=== PATIENT | female | born 2000 | race American Indian/Alaskan Native ===

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

== ENCOUNTER 2020-04-25 11:38 | Outpatient (CLI) | payer OTHER ==
[2020-04-25 11:54] VITALS: BP 98/53
== END 2020-04-25 12:41 | disposition home or self-care (01) ==
LOC: APU 11:38 → TRG 11:38
PROVIDERS: ATTEND Obstetrics & Gynecology
DX: O47.03 False labor before 37 completed weeks of gestation, third trimester (principal); Z3A.32 32 weeks gestation of pregnancy
CPT/HCPCS: 59025

== ENCOUNTER 2022-04-18 10:15 | Outpatient (CLI) | payer OTHER ==
[2022-04-18 11:46] VITALS: BP 88/51
[2022-04-18] MEDS ORDERED: LACTATED RINGERS 500 ML IV ONE (12:00)
[2022-04-18 12:27] LABS: Bacteria,Urine 1+ /HPF (Negative); Bilirubin,Urine NEG (Negative); Blood,Urine NEG (Negative); Color,Urine Yellow (Yellow); Protein,Urine <15 mg/dL mg/dL (Negative); Urobilinogen,Urine < 2.0 mg/dL (<2.0)
== END 2022-04-18 13:58 | disposition home or self-care (01) ==
LOC: NM 10:15 → APU 10:18 → NM 13:58
PROVIDERS: ATTEND Obstetrics & Gynecology
DX: Z34.92 Encounter for supervision of normal pregnancy, unspecified, second trimester (principal); Z3A.23 23 weeks gestation of pregnancy
CPT/HCPCS: 59025; 81001

== ENCOUNTER 2022-07-01 20:41 | Inpatient (IN) | payer OTHER ==
[2022-07-01] MEDS ORDERED: LACTATED RINGERS 500 ML IV ONE (21:25)
[2022-07-01 22:12] LABS: Color,Urine Yellow (Yellow)
[2022-07-01 22:13] LABS: Bilirubin,Urine Negative (Negative); Blood,Urine Negative (Negative); Protein,Urine <15 mg/dL mg/dL (Negative); Urobilinogen,Urine < 2.0 mg/dL (<2.0)
[2022-07-01] MEDS ORDERED: TERBUTALINE 1 MG/1 ML INJ SUB-Q ONE (23:03)
[2022-07-02] MEDS ORDERED: ACETAMINOPHEN 325 MG TAB PO PRN (00:28)
[2022-07-02] MEDS ORDERED: DOCUSATE SODIUM 100 MG CAP PO PRN (00:28)
[2022-07-02] MEDS ORDERED: MAGNESIUM SULFATE 4 GM/100 ML BAG IV ONE (00:30)
[2022-07-02] MEDS: BETAMET ACET/BETAMET NA PH 6 MG/ML INJ 5 ML MDV IM SCH (00:45)
[2022-07-02 00:47] LABS: Basophils % (Auto) 0.6 % (0.0-1.8); Eosinophils # (Auto) 0.3 K/mm3 (0.0-0.4); Eosinophils % (Auto) 3.8 % (0.0-4.3); Hematocrit 34.3 % (30.3-42.9); Hemoglobin 11.5 gm/dl (10.1-14.3); Lymphocytes # (Auto) 2.1 K/mm3 (1.2-5.4); Lymphocytes % (Auto) 26.7 % (13.4-35.0); Mean Corpuscular HGB Conc 34 % (30-34); Mean Corpuscular Volume 81 fl (79-97); Monocytes # (Auto) 0.5 K/mm3 (0.0-0.8); Monocytes % (Auto) 6.3 % (0.0-7.3); Platelet Count 213 K/mm3 (140-440); Red Blood Count 4.21 M/mm3 (3.65-5.03); Red Cell Distribution Width 13.6 % (13.2-15.2)
[2022-07-02] MEDS ORDERED: LACTATED RINGERS 1,000 ML ONE ×2 (01:13→13:49)
[2022-07-02] MEDS: MAGNESIUM SULFATE 40GM/1000ML 40 GM/1,000 ML BAG IV SCH (03:04)
--- NOTE | 2022-07-02 08:51 | History and Physical Report ---
History of Present Illness Date of examination: 07/02/22 Date of admission: 07/02/22 00:28 Chief complaint: ctxs History of present illness: 21 yo, @ 34wks, initiated care with [facility] at 10wks. has been complicated by sickle cell trait and HSV2. She presents to [facility] yesterday with reports of frequent painful ctxs. Reports positive FM, denies any VB. Cervix was found to be 2 cms dilated. Labs: B+, antibody negative; rubella immune; VDRL negative; urine culture negative; HBsAg negative; HIV negative; Hep C negative; GC/Chlamydia/Trichomonas negative; 1 hr gtt 64; GBS not yet collected. 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 denies: smoking, alcohol abuse, prescription drug abuse, IV drug use - Obstetrical History Expected Date of Delivery: 08/13/22 Actual Gestation: 34 Week(s) 0 Day(s) : 4 Para: 2 Hx # Term Pregnancies: 2 Number of Pregnancies: 0 Spontaneous Abortions: 0 Induced : 1 Number of Living Children: 2 #1 Gender: Male year: 2[birth year] Birthweight: 2.608 kg Method of Delivery: Vaginal Gestational age at delivery: 38 Complications: none #2 Gender: Male year: 2,020 Birthweight: 2.892 kg Method of Delivery: Vaginal Gestational age at delivery: 37 Complications: none Medications and Allergies Allergies Allergy/AdvReac Type Severity Reaction Status Date / Time No Known Allergies Allergy Verified 11/14/15 08:08 Home Medications Medication Instructions Recorded Confirmed Last Taken Type Pnv,Calcium 72/Iron/Folic Acid 1 each PO DAILY 08/10/16 05/30/20 Unknown History [Pnv Plus Multivit Tab] HYDROcodone/APAP 5-325 [[place] 2 each PO Q6H PRN #30 tablet 08/11/16 05/30/20 Unknown Rx 5-325 mg TAB] Ibuprofen [Motrin 600 MG tab] 600 mg PO Q6HR PRN #30 tablet 09/19/16 07/08/20 Unknown Rx Vit-Fe Fumar-FA [ 1 each PO QDAY #30 tablet 08/11/16 05/30/20 Unknown Rx Vitamin] Ibuprofen [Motrin 600 MG tab] 600 mg PO Q6H tablet 05/31/20 Unknown Rx Ibuprofen [Motrin] 600 mg PO Q6H PRN #60 tablet 05/31/20 Unknown Rx Active Meds: Active Medications Acetaminophen (Acetaminophen 325 Mg Tab) 650 mg PO Q4H PRN PRN Reason: Pain MILD(1-3)/Fever >100.5/FISHER Betamethasone Acet/Betameth SodPhos (Betamet Acet/Betamet Na Ph 6 Mg/Ml Inj 5 Ml Mdv) 12 mg IM Q24H ADALID Stop: 07/03/22 01:01 Last Admin: 07/02/22 00:45 Dose: 12 mg Docusate Sodium (Docusate Sodium 100 Mg Cap) 100 mg PO Q12H PRN PRN Reason: Constipation Magnesium Sulfate (Magnesium Sulfate 40gm/1000ml) 40 gm in 1,000 mls @ 50 mls/hr IV DIRECT ADALID Last Admin: 07/02/22 03:04 Dose: 2 gm/hr, 50 mls/hr Multivitamins/Iron/Calcium ( [id number]-Ru Fumarate-Folic Acid Vit Tab) 1 each PO QDAY ADALID Review of Systems All systems: negative Genitourinary: contractions - Vital Signs Vital signs: Vital Signs Pulse Pulse Ox 93 H 97 07/01/22 21:21 07/01/22 21:21 Temp Pulse Resp BP Pulse Ox 98.1 F 95 H 14 103/65 99 07/01/22 21:24 07/02/22 08:48 07/01/22 21:24 07/02/22 08:44 07/02/22 08:48 - Physical Exam Breasts: Positive: deferred Cardiovascular: Regular rate Lungs: Positive: Normal air movement Abdomen: Positive: other (gravid) Uterus: Positive: enlarged (S=D) Deep Tendon Reflex Grade: Normal +2 - Obstetrical FHR: category 1 Uterine Contraction Monitor Mode: External Cervical Dilatation: 4 (per RN) Cervical Effacement Percentage: 50 station: -2 Uterine Contraction Frequency (min): 4-5 Uterine Contraction Pattern: Irregular Uterine Tone Measurement Phase: Resting Uterine Contraction Intensity: Mild Results Result Diagrams: 07/02/22 00:38 Abnormal lab results 07/02/22 07/02/22 Range/Units 00:38 07:39 MCH 27 L (28-32) pg Magnesium 4.80 H (1.7-2.3) mg/dL All other labs normal. Assessment and Plan - Patient Problems (1) contractions Current Visit: Yes Status: Acute Plan to address problem: Continue Magnesium Betamethosone as ordered Continue to closely monitor /maternal wellbeing Expectant management (2) GBS screening not performed Current Visit: Yes Status: Acute (3) Sickle cell trait Current Visit: Yes Status: Acute (4) HSV-2 seropositive Current Visit: Yes Status: Acute Plan to address problem: No lesions noted
[2022-07-02] MEDS: PRENATAL VIT27-FE FUMARATE-FOLIC ACID VIT TAB PO SCH (10:14)
[2022-07-03] MEDS: MAGNESIUM SULFATE 40GM/1000ML 40 GM/1,000 ML BAG IV SCH (00:25)
[2022-07-03] MEDS ORDERED: LACTATED RINGERS 1,000 ML ONE ×2 (03:17→15:58)
[2022-07-03] MEDS: BETAMET ACET/BETAMET NA PH 6 MG/ML INJ 5 ML MDV IM SCH (07:00)
[2022-07-03 07:49] LABS: Amphetamine Screen,Urine Negative; Benzodiazepines Screen,Urine Negative; Cannabinoid Screen,Urine Negative; Cocaine Screen,Urine Negative; Methadone Screen,Urine Negative; Opiate Screen,Urine Negative
[2022-07-03] MEDS: PRENATAL VIT27-FE FUMARATE-FOLIC ACID VIT TAB PO SCH (09:53)
--- NOTE | 2022-07-03 21:52 | Progress Note ---
Assessment and Plan - Patient Problems (1) contractions Current Visit: Yes Status: Acute Plan to address problem: discontinue magnesium observe overnight and consider discharge home tomorrow if remains stable Subjective - Subjective Date of service: 07/03/22 Interval history: 21y/o @ 34+1 weeks with labor. The patient is currently without complaints. She is completing magnesium tocolysis today and betamethasone treatment. Denies leakage of fluid or vaginal bleeding. Objective - Vital Signs Vital Signs: Vital Signs - 12hr 07/03/22 07/03/22 07/03/22 09:50 09:55 09:57 Temperature Pulse Rate 99 H 91 H 91 H Respiratory Rate Blood Pressure O2 Sat by Pulse 96 98 88 Oximetry 07/03/22 07/03/22 07/03/22 10:00 10:05 10:10 Temperature Pulse Rate 91 H 84 89 Respiratory Rate Blood Pressure O2 Sat by Pulse 99 100 99 Oximetry 07/03/22 07/03/22 07/03/22 10:14 10:15 10:20 Temperature Pulse Rate 88 79 87 Respiratory Rate Blood Pressure 100/61 O2 Sat by Pulse 97 95 Oximetry 07/03/22 07/03/22 07/03/22 10:25 10:30 10:35 Temperature Pulse Rate 92 H 97 H 90 Respiratory Rate Blood Pressure O2 Sat by Pulse 96 94 95 Oximetry 07/03/22 07/03/22 07/03/22 10:40 10:45 10:50 Temperature Pulse Rate 83 82 87 Respiratory Rate Blood Pressure 98/58 O2 Sat by Pulse 97 92 95 Oximetry 07/03/22 07/03/22 07/03/22 10:55 11:00 11:05 Temperature Pulse Rate 85 84 97 H Respiratory Rate Blood Pressure O2 Sat by Pulse 97 97 95 Oximetry 07/03/22 07/03/22 07/03/22 11:10 11:15 11:20 Temperature Pulse Rate 82 95 H 85 Respiratory Rate Blood Pressure O2 Sat by Pulse 95 97 100 Oximetry 07/03/22 07/03/22 07/03/22 11:25 11:30 11:35 Temperature Pulse Rate 84 97 H 85 Respiratory Rate Blood Pressure O2 Sat by Pulse 98 96 96 Oximetry 07/03/22 07/03/22 07/03/22 11:36 11:40 11:45 Temperature Pulse Rate 50 L 87 89 Respiratory Rate Blood Pressure O2 Sat by Pulse 74 L 98 95 Oximetry 07/03/22 07/03/22 07/03/22 11:46 11:50 11:53 Temperature Pulse Rate 82 89 79 Respiratory Rate Blood Pressure 95/59 O2 Sat by Pulse 97 86 Oximetry 07/03/22 07/03/22 07/03/22 11:55 11:59 12:00 Temperature Pulse Rate 82 100 H 83 Respiratory Rate Blood Pressure O2 Sat by Pulse 100 86 94 Oximetry 07/03/22 07/03/22 07/03/22 12:05 12:10 12:15 Temperature Pulse Rate 117 H 93 H 87 Respiratory Rate Blood Pressure 99/65 O2 Sat by Pulse 90 96 100 Oximetry 07/03/22 07/03/22 07/03/22 12:20 12:23 12:25 Temperature Pulse Rate 95 H 90 87 Respiratory Rate Blood Pressure O2 Sat by Pulse 100 84 98 Oximetry 07/03/22 07/03/22 07/03/22 12:29 12:30 12:35 Temperature Pulse Rate 108 H 103 H 85 Respiratory Rate Blood Pressure O2 Sat by Pulse 79 L 84 100 Oximetry 07/03/22 07/03/22 07/03/22 12:40 12:44 12:45 Temperature Pulse Rate 94 H 85 87 Respiratory Rate Blood Pressure 101/63 O2 Sat by Pulse 100 97 Oximetry 07/03/22 07/03/22 07/03/22 12:48 12:50 12:55 Temperature Pulse Rate 62 86 91 H Respiratory Rate Blood Pressure O2 Sat by Pulse 89 100 97 Oximetry 07/03/22 07/03/22 07/03/22 13:00 13:05 13:10 Temperature Pulse Rate 90 86 89 Respiratory Rate Blood Pressure O2 Sat by Pulse 96 93 92 Oximetry 07/03/22 07/03/22 07/03/22 13:14 13:15 13:20 Temperature Pulse Rate 88 93 H 93 H Respiratory Rate Blood Pressure 87/50 O2 Sat by Pulse 93 94 Oximetry 07/03/22 07/03/22 07/03/22 13:25 13:30 13:35 Temperature Pulse Rate 90 91 H 94 H Respiratory Rate Blood Pressure O2 Sat by Pulse 94 93 94 Oximetry 07/03/22 07/03/22 07/03/22 13:40 13:44 13:45 Temperature Pulse Rate 92 H 91 H 93 H Respiratory Rate Blood Pressure 86/52 O2 Sat by Pulse 93 91 Oximetry 07/03/22 07/03/22 07/03/22 13:50 13:55 14:00 Temperature Pulse Rate 95 H 91 H 92 H Respiratory Rate Blood Pressure O2 Sat by Pulse 94 94 94 Oximetry 07/03/22 07/03/22 07/03/22 14:05 14:10 14:14 Temperature Pulse Rate 97 H 95 H 93 H Respiratory Rate Blood Pressure 84/53 O2 Sat by Pulse 93 93 88 Oximetry 07/03/22 07/03/22 07/03/22 14:15 14:20 14:23 Temperature Pulse Rate 93 H 96 H 95 H Respiratory Rate Blood Pressure O2 Sat by Pulse 93 93 88 Oximetry 07/03/22 07/03/22 07/03/22 14:25 14:30 14:35 Temperature Pulse Rate 94 H 94 H 99 H Respiratory Rate Blood Pressure O2 Sat by Pulse 93 93 93 Oximetry 07/03/22 07/03/22 07/03/22 14:40 14:45 14:50 Temperature Pulse Rate 97 H 87 89 Respiratory Rate Blood Pressure 101/59 O2 Sat by Pulse 94 95 96 Oximetry 07/03/22 07/03/22 07/03/22 14:52 14:55 15:00 Temperature Pulse Rate 59 L 90 97 H Respiratory Rate Blood Pressure O2 Sat by Pulse 88 96 97 Oximetry 07/03/22 07/03/22 07/03/22 15:05 15:10 15:15 Temperature Pulse Rate 86 92 H 90 Respiratory Rate Blood Pressure O2 Sat by Pulse 97 96 98 Oximetry 07/03/22 07/03/22 07/03/22 15:16 15:19 15:20 Temperature Pulse Rate 87 64 78 Respiratory Rate Blood Pressure 92/58 O2 Sat by Pulse 88 96 Oximetry 07/03/22 07/03/22 07/03/22 15:25 15:30 15:33 Temperature Pulse Rate 84 79 87 Respiratory Rate Blood Pressure O2 Sat by Pulse 100 99 89 Oximetry 07/03/22 07/03/22 07/03/22 15:35 15:40 15:45 Temperature Pulse Rate 88 85 96 H Respiratory Rate Blood Pressure 102/63 O2 Sat by Pulse 98 93 99 Oximetry 07/03/22 07/03/22 07/03/22 15:50 15:55 16:00 Temperature Pulse Rate 88 78 89 Respiratory Rate Blood Pressure O2 Sat by Pulse 98 98 97 Oximetry 07/03/22 07/03/22 07/03/22 16:03 16:05 16:10 Temperature Pulse Rate 86 89 84 Respiratory Rate Blood Pressure O2 Sat by Pulse 70 L 99 82 L Oximetry 07/03/22 07/03/22 07/03/22 16:15 16:20 16:25 Temperature Pulse Rate 82 87 84 Respiratory Rate Blood Pressure 109/63 O2 Sat by Pulse 100 100 100 Oximetry 07/03/22 07/03/22 07/03/22 16:30 16:35 16:40 Temperature Pulse Rate 81 80 100 H Respiratory Rate Blood Pressure O2 Sat by Pulse 100 100 98 Oximetry 07/03/22 07/03/22 07/03/22 16:45 16:50 16:55 Temperature Pulse Rate 92 H 91 H 89 Respiratory Rate Blood Pressure 101/66 O2 Sat by Pulse 93 94 95 Oximetry 07/03/22 07/03/22 07/03/22 17:00 17:05 17:10 Temperature Pulse Rate 98 H 85 93 H Respiratory Rate Blood Pressure O2 Sat by Pulse 96 99 97 Oximetry 07/03/22 07/03/22 07/03/22 17:14 17:15 17:20 Temperature Pulse Rate 81 92 H 93 H Respiratory Rate Blood Pressure 101/60 O2 Sat by Pulse 97 98 Oximetry 07/03/22 07/03/22 07/03/22 17:25 17:26 17:30 Temperature Pulse Rate 93 H 72 103 H Respiratory Rate Blood Pressure O2 Sat by Pulse 100 89 99 Oximetry 07/03/22 07/03/22 07/03/22 17:35 17:40 17:46 Temperature Pulse Rate 91 H 92 H 78 Respiratory Rate Blood Pressure O2 Sat by Pulse 98 100 80 L Oximetry 07/03/22 07/03/22 07/03/22 17:51 17:56 18:01 Temperature Pulse Rate 83 100 H 83 Respiratory Rate Blood Pressure O2 Sat by Pulse 92 96 95 Oximetry 07/03/22 07/03/22 07/03/22 18:06 18:11 18:16 Temperature Pulse Rate 83 96 H 88 Respiratory Rate Blood Pressure O2 Sat by Pulse 92 95 97 Oximetry 07/03/22 07/03/22 07/03/22 18:21 18:26 18:31 Temperature Pulse Rate 86 90 95 H Respiratory Rate Blood Pressure O2 Sat by Pulse 97 97 98 Oximetry 07/03/22 07/03/22 07/03/22 18:36 18:41 18:44 Temperature Pulse Rate 89 82 86 Respiratory Rate Blood Pressure 98/58 O2 Sat by Pulse 97 100 Oximetry 07/03/22 07/03/22 07/03/22 18:46 18:50 18:51 Temperature Pulse Rate 84 100 H 78 Respiratory Rate Blood Pressure O2 Sat by Pulse 97 84 97 Oximetry 07/03/22 07/03/22 07/03/22 18:56 19:01 19:06 Temperature Pulse Rate 83 78 80 Respiratory Rate Blood Pressure O2 Sat by Pulse 97 95 97 Oximetry 07/03/22 07/03/22 07/03/22 19:11 19:15 19:16 Temperature Pulse Rate 106 H 70 79 Respiratory Rate Blood Pressure 101/62 O2 Sat by Pulse 98 96 Oximetry 07/03/22 07/03/22 07/03/22 19:21 19:26 19:31 Temperature Pulse Rate 80 82 77 Respiratory Rate Blood Pressure O2 Sat by Pulse 96 95 95 Oximetry 07/03/22 07/03/22 07/03/22 19:33 19:36 19:41 Temperature 98.2 F Pulse Rate 86 83 79 Respiratory 17 Rate Blood Pressure O2 Sat by Pulse 94 95 Oximetry 07/03/22 07/03/22 07/03/22 19:45 19:46 19:51 Temperature Pulse Rate 84 80 77 Respiratory Rate Blood Pressure 101/66 O2 Sat by Pulse 95 96 Oximetry 07/03/22 07/03/22 07/03/22 19:56 20:01 20:06 Temperature Pulse Rate 81 90 82 Respiratory Rate Blood Pressure O2 Sat by Pulse 98 96 95 Oximetry 07/03/22 07/03/22 07/03/22 20:11 20:14 20:16 Temperature Pulse Rate 83 75 82 Respiratory Rate Blood Pressure 99/63 O2 Sat by Pulse 96 96 Oximetry 07/03/22 07/03/22 07/03/22 20:21 20:26 20:31 Temperature Pulse Rate 78 76 85 Respiratory Rate Blood Pressure O2 Sat by Pulse 97 97 94 Oximetry 07/03/22 07/03/22 07/03/22 20:36 20:41 20:46 Temperature Pulse Rate 81 81 76 Respiratory Rate Blood Pressure 105/63 O2 Sat by Pulse 98 98 92 Oximetry 07/03/22 07/03/22 07/03/22 20:51 20:56 21:01 Temperature Pulse Rate 81 80 81 Respiratory Rate Blood Pressure O2 Sat by Pulse 98 96 95 Oximetry 07/03/22 07/03/22 07/03/22 21:06 21:11 21:14 Temperature Pulse Rate 79 93 H 80 Respiratory Rate Blood Pressure 102/65 O2 Sat by Pulse 97 97 Oximetry 07/03/22 07/03/22 07/03/22 21:16 21:21 21:26 Temperature Pulse Rate 71 76 78 Respiratory Rate Blood Pressure O2 Sat by Pulse 98 97 99 Oximetry 07/03/22 07/03/22 07/03/22 21:31 21:33 21:36 Temperature Pulse Rate 77 86 84 Respiratory Rate Blood Pressure O2 Sat by Pulse 99 84 98 Oximetry 07/03/22 07/03/22 07/03/22 21:41 21:45 21:46 Temperature Pulse Rate 84 75 76 Respiratory Rate Blood Pressure 101/56 O2 Sat by Pulse 96 95 Oximetry - Labs Labs: Abnormal Labs 07/02/22 07/02/22 07/02/22 00:38 07:39 11:20 MCH 27 L Magnesium 4.80 H 5.40 H 07/02/22 07/03/22 07/03/22 16:27 00:58 07:00 MCH Magnesium 5.90 H 4.80 H 6.20 H 07/03/22 12:17 MCH Magnesium 5.90 H Laboratory Results - last 24 hr 07/03/22 07/03/22 07/03/22 00:58 07:00 12:17 Magnesium 4.80 H 6.20 H 5.90 H Urine Opiates Screen Urine Methadone Screen Ur Barbiturates Screen Ur Phencyclidine Scrn Ur Amphetamines Screen U Benzodiazepines Scrn Urine Cocaine Screen U Marijuana (THC) Screen Drugs of Abuse Note 07/03/22 Unknown Magnesium Urine Opiates Screen Negative Urine Methadone Screen Negative Ur Barbiturates Screen Negative Ur Phencyclidine Scrn Negative Ur Amphetamines Screen Negative U Benzodiazepines Scrn Negative Urine Cocaine Screen Negative U Marijuana (THC) Screen Negative Drugs of Abuse Note Disclamer
[2022-07-04] MEDS ORDERED: LACTATED RINGERS 1,000 ML ONE (04:44)
--- NOTE | 2022-07-04 06:31 | Progress Note ---
Assessment and Plan - Patient Problems (1) contractions Current Visit: Yes Status: Acute Plan to address problem: Patient is clinically stable Discharge home on modified bedrest Subjective - Subjective Date of service: 07/04/22 Interval history: 21y/o @ 34+2 weeks with labor. The patient is experiencing intermittent contractions. She denies any leakage of fluid. The patient has completed magnesium sulfate therapy and betamethasone. Patient reports: no new complaints Objective - Vital Signs Vital Signs: Vital Signs - 12hr 07/03/22 07/03/22 07/03/22 18:31 18:36 18:41 Temperature Pulse Rate 95 H 89 82 Respiratory Rate Blood Pressure O2 Sat by Pulse 98 97 100 Oximetry O2 Sat by Pulse Oximetry [ Throughout] 07/03/22 07/03/22 07/03/22 18:44 18:46 18:50 Temperature Pulse Rate 86 84 100 H Respiratory Rate Blood Pressure 98/58 O2 Sat by Pulse 97 84 Oximetry O2 Sat by Pulse Oximetry [ Throughout] 07/03/22 07/03/22 07/03/22 18:51 18:56 19:01 Temperature Pulse Rate 78 83 78 Respiratory Rate Blood Pressure O2 Sat by Pulse 97 97 95 Oximetry O2 Sat by Pulse Oximetry [ Throughout] 07/03/22 07/03/22 07/03/22 19:06 19:11 19:15 Temperature Pulse Rate 80 106 H 70 Respiratory Rate Blood Pressure 101/62 O2 Sat by Pulse 97 98 Oximetry O2 Sat by Pulse Oximetry [ Throughout] 07/03/22 07/03/22 07/03/22 19:16 19:21 19:26 Temperature Pulse Rate 79 80 82 Respiratory Rate Blood Pressure O2 Sat by Pulse 96 96 95 Oximetry O2 Sat by Pulse Oximetry [ Throughout] 07/03/22 07/03/22 07/03/22 19:31 19:33 19:36 Temperature 98.2 F Pulse Rate 77 86 83 Respiratory 17 Rate Blood Pressure O2 Sat by Pulse 95 94 Oximetry O2 Sat by Pulse Oximetry [ Throughout] 07/03/22 07/03/22 07/03/22 19:41 19:45 19:46 Temperature Pulse Rate 79 84 80 Respiratory Rate Blood Pressure 101/66 O2 Sat by Pulse 95 95 Oximetry O2 Sat by Pulse Oximetry [ Throughout] 07/03/22 07/03/22 07/03/22 19:51 19:56 20:00 Temperature 97.8 F Pulse Rate 77 81 Respiratory 16 Rate Blood Pressure O2 Sat by Pulse 96 98 98 Oximetry O2 Sat by Pulse 96 Oximetry [ Throughout] 07/03/22 07/03/22 07/03/22 20:01 20:06 20:11 Temperature Pulse Rate 90 82 83 Respiratory Rate Blood Pressure O2 Sat by Pulse 96 95 96 Oximetry O2 Sat by Pulse Oximetry [ Throughout] 07/03/22 07/03/22 07/03/22 20:14 20:16 20:21 Temperature Pulse Rate 75 82 78 Respiratory Rate Blood Pressure 99/63 O2 Sat by Pulse 96 97 Oximetry O2 Sat by Pulse Oximetry [ Throughout] 07/03/22 07/03/22 07/03/22 20:26 20:31 20:36 Temperature Pulse Rate 76 85 81 Respiratory Rate Blood Pressure O2 Sat by Pulse 97 94 98 Oximetry O2 Sat by Pulse Oximetry [ Throughout] 07/03/22 07/03/22 07/03/22 20:41 20:46 20:51 Temperature Pulse Rate 81 76 81 Respiratory Rate Blood Pressure 105/63 O2 Sat by Pulse 98 92 98 Oximetry O2 Sat by Pulse Oximetry [ Throughout] 07/03/22 07/03/22 07/03/22 20:56 21:01 21:06 Temperature Pulse Rate 80 81 79 Respiratory Rate Blood Pressure O2 Sat by Pulse 96 95 97 Oximetry O2 Sat by Pulse Oximetry [ Throughout] 07/03/22 07/03/22 07/03/22 21:11 21:14 21:16 Temperature Pulse Rate 93 H 80 71 Respiratory Rate Blood Pressure 102/65 O2 Sat by Pulse 97 98 Oximetry O2 Sat by Pulse Oximetry [ Throughout] 07/03/22 07/03/22 07/03/22 21:21 21:26 21:31 Temperature Pulse Rate 76 78 77 Respiratory Rate Blood Pressure O2 Sat by Pulse 97 99 99 Oximetry O2 Sat by Pulse Oximetry [ Throughout] 07/03/22 07/03/22 07/03/22 21:33 21:36 21:41 Temperature Pulse Rate 86 84 84 Respiratory Rate Blood Pressure O2 Sat by Pulse 84 98 96 Oximetry O2 Sat by Pulse Oximetry [ Throughout] 07/03/22 07/03/22 07/03/22 21:45 21:46 21:51 Temperature Pulse Rate 75 76 75 Respiratory Rate Blood Pressure 101/56 O2 Sat by Pulse 95 95 Oximetry O2 Sat by Pulse Oximetry [ Throughout] 07/03/22 07/03/22 07/03/22 21:56 22:01 22:06 Temperature Pulse Rate 84 84 81 Respiratory Rate Blood Pressure O2 Sat by Pulse 93 95 97 Oximetry O2 Sat by Pulse Oximetry [ Throughout] 07/03/22 07/03/22 07/03/22 22:11 22:14 22:16 Temperature Pulse Rate 82 73 92 H Respiratory Rate Blood Pressure 103/68 O2 Sat by Pulse 94 95 Oximetry O2 Sat by Pulse Oximetry [ Throughout] 07/03/22 07/03/22 07/03/22 22:21 22:26 22:31 Temperature Pulse Rate 83 78 81 Respiratory Rate Blood Pressure O2 Sat by Pulse 96 94 94 Oximetry O2 Sat by Pulse Oximetry [ Throughout] 07/03/22 07/03/22 07/03/22 22:36 22:41 22:45 Temperature Pulse Rate 84 80 73 Respiratory Rate Blood Pressure 95/64 O2 Sat by Pulse 95 94 Oximetry O2 Sat by Pulse Oximetry [ Throughout] 07/03/22 07/03/22 07/03/22 22:46 22:51 22:56 Temperature Pulse Rate 83 76 74 Respiratory Rate Blood Pressure O2 Sat by Pulse 93 95 96 Oximetry O2 Sat by Pulse Oximetry [ Throughout] 07/03/22 07/03/22 07/03/22 23:01 23:06 23:11 Temperature Pulse Rate 77 84 80 Respiratory Rate Blood Pressure O2 Sat by Pulse 95 96 95 Oximetry O2 Sat by Pulse Oximetry [ Throughout] 07/03/22 07/03/22 07/03/22 23:15 23:16 23:21 Temperature Pulse Rate 76 81 77 Respiratory Rate Blood Pressure 101/63 O2 Sat by Pulse 94 96 Oximetry O2 Sat by Pulse Oximetry [ Throughout] 07/03/22 07/03/22 07/03/22 23:26 23:31 23:35 Temperature Pulse Rate 79 100 H 82 Respiratory Rate Blood Pressure O2 Sat by Pulse 95 98 84 Oximetry O2 Sat by Pulse Oximetry [ Throughout] 07/03/22 07/03/22 07/03/22 23:36 23:41 23:44 Temperature Pulse Rate 86 85 78 Respiratory Rate Blood Pressure 90/57 O2 Sat by Pulse 98 97 Oximetry O2 Sat by Pulse Oximetry [ Throughout] 07/03/22 07/03/22 07/03/22 23:46 23:51 23:56 Temperature Pulse Rate 80 93 H 91 H Respiratory Rate Blood Pressure O2 Sat by Pulse 96 96 97 Oximetry O2 Sat by Pulse Oximetry [ Throughout] 07/04/22 07/04/22 07/04/22 00:01 00:06 00:11 Temperature Pulse Rate 85 80 76 Respiratory Rate Blood Pressure O2 Sat by Pulse 98 94 94 Oximetry O2 Sat by Pulse Oximetry [ Throughout] 07/04/22 07/04/22 07/04/22 00:15 00:16 00:21 Temperature Pulse Rate 84 81 78 Respiratory Rate Blood Pressure 94/66 O2 Sat by Pulse 94 96 Oximetry O2 Sat by Pulse Oximetry [ Throughout] 07/04/22 07/04/22 07/04/22 00:26 00:31 00:36 Temperature Pulse Rate 77 80 83 Respiratory Rate Blood Pressure O2 Sat by Pulse 96 93 95 Oximetry O2 Sat by Pulse Oximetry [ Throughout] 07/04/22 07/04/22 07/04/22 00:41 00:44 00:45 Temperature Pulse Rate 96 H 77 85 Respiratory Rate Blood Pressure 93/53 O2 Sat by Pulse 96 89 Oximetry O2 Sat by Pulse Oximetry [ Throughout] 07/04/22 07/04/22 07/04/22 00:46 00:51 00:56 Temperature Pulse Rate 76 80 80 Respiratory Rate Blood Pressure O2 Sat by Pulse 95 97 93 Oximetry O2 Sat by Pulse Oximetry [ Throughout] 07/04/22 07/04/22 07/04/22 01:01 01:06 01:11 Temperature Pulse Rate 78 82 84 Respiratory Rate Blood Pressure O2 Sat by Pulse 92 98 97 Oximetry O2 Sat by Pulse Oximetry [ Throughout] 07/04/22 07/04/22 07/04/22 01:14 01:16 01:21 Temperature Pulse Rate 89 82 74 Respiratory Rate Blood Pressure 113/71 O2 Sat by Pulse 85 98 98 Oximetry O2 Sat by Pulse Oximetry [ Throughout] 07/04/22 07/04/22 07/04/22 01:26 01:31 01:36 Temperature Pulse Rate 80 95 H 85 Respiratory Rate Blood Pressure O2 Sat by Pulse 96 96 96 Oximetry O2 Sat by Pulse Oximetry [ Throughout] 07/04/22 07/04/22 07/04/22 01:41 01:45 01:46 Temperature Pulse Rate 82 74 76 Respiratory Rate Blood Pressure 100/60 O2 Sat by Pulse 95 93 Oximetry O2 Sat by Pulse Oximetry [ Throughout] 07/04/22 07/04/22 07/04/22 01:48 01:51 01:56 Temperature Pulse Rate 88 68 78 Respiratory Rate Blood Pressure O2 Sat by Pulse 85 100 95 Oximetry O2 Sat by Pulse Oximetry [ Throughout] 07/04/22 07/04/22 07/04/22 02:01 02:06 02:11 Temperature Pulse Rate 81 75 81 Respiratory Rate Blood Pressure O2 Sat by Pulse 95 97 96 Oximetry O2 Sat by Pulse Oximetry [ Throughout] 07/04/22 07/04/22 07/04/22 02:15 02:16 02:21 Temperature Pulse Rate 69 74 78 Respiratory Rate Blood Pressure 96/59 O2 Sat by Pulse 95 95 Oximetry O2 Sat by Pulse Oximetry [ Throughout] 07/04/22 07/04/22 07/04/22 02:26 02:31 02:36 Temperature Pulse Rate 77 81 79 Respiratory Rate Blood Pressure O2 Sat by Pulse 95 95 95 Oximetry O2 Sat by Pulse Oximetry [ Throughout] 07/04/22 07/04/22 07/04/22 02:41 02:44 02:46 Temperature Pulse Rate 84 81 80 Respiratory Rate Blood Pressure 94/60 O2 Sat by Pulse 95 95 Oximetry O2 Sat by Pulse Oximetry [ Throughout] 07/04/22 07/04/22 07/04/22 02:51 02:56 03:01 Temperature Pulse Rate 81 83 88 Respiratory Rate Blood Pressure O2 Sat by Pulse 95 95 95 Oximetry O2 Sat by Pulse Oximetry [ Throughout] 07/04/22 07/04/22 07/04/22 03:06 03:11 03:15 Temperature Pulse Rate 87 88 82 Respiratory Rate Blood Pressure 98/59 O2 Sat by Pulse 94 93 Oximetry O2 Sat by Pulse Oximetry [ Throughout] 07/04/22 07/04/22 07/04/22 03:16 03:21 03:26 Temperature Pulse Rate 83 80 88 Respiratory Rate Blood Pressure O2 Sat by Pulse 95 95 95 Oximetry O2 Sat by Pulse Oximetry [ Throughout] 07/04/22 07/04/22 07/04/22 03:31 03:36 03:41 Temperature Pulse Rate 89 99 H 89 Respiratory Rate Blood Pressure O2 Sat by Pulse 95 95 94 Oximetry O2 Sat by Pulse Oximetry [ Throughout] 07/04/22 07/04/22 07/04/22 03:44 03:46 03:51 Temperature Pulse Rate 83 85 87 Respiratory Rate Blood Pressure 92/52 O2 Sat by Pulse 95 94 Oximetry O2 Sat by Pulse Oximetry [ Throughout] 07/04/22 07/04/22 07/04/22 03:56 04:01 04:06 Temperature Pulse Rate 86 85 89 Respiratory Rate Blood Pressure O2 Sat by Pulse 95 95 95 Oximetry O2 Sat by Pulse Oximetry [ Throughout] 07/04/22 07/04/22 07/04/22 04:11 04:14 04:16 Temperature Pulse Rate 77 88 75 Respiratory Rate Blood Pressure 99/57 O2 Sat by Pulse 96 94 Oximetry O2 Sat by Pulse Oximetry [ Throughout] 07/04/22 07/04/22 07/04/22 04:21 04:26 04:31 Temperature Pulse Rate 73 81 78 Respiratory Rate Blood Pressure O2 Sat by Pulse 94 95 95 Oximetry O2 Sat by Pulse Oximetry [ Throughout] 07/04/22 07/04/22 07/04/22 04:36 04:41 04:44 Temperature Pulse Rate 79 83 73 Respiratory Rate Blood Pressure 93/55 O2 Sat by Pulse 95 98 Oximetry O2 Sat by Pulse Oximetry [ Throughout] 07/04/22 07/04/22 07/04/22 04:46 04:51 04:56 Temperature Pulse Rate 73 75 72 Respiratory Rate Blood Pressure O2 Sat by Pulse 95 95 96 Oximetry O2 Sat by Pulse Oximetry [ Throughout] 07/04/22 07/04/22 07/04/22 05:01 05:12 05:16 Temperature Pulse Rate 74 62 75 Respiratory Rate Blood Pressure 108/59 O2 Sat by Pulse 96 88 Oximetry O2 Sat by Pulse Oximetry [ Throughout] 07/04/22 07/04/22 07/04/22 05:17 05:22 05:27 Temperature Pulse Rate 87 84 89 Respiratory Rate Blood Pressure O2 Sat by Pulse 99 95 94 Oximetry O2 Sat by Pulse Oximetry [ Throughout] 07/04/22 07/04/22 07/04/22 05:32 05:37 05:42 Temperature Pulse Rate 100 H 88 86 Respiratory Rate Blood Pressure O2 Sat by Pulse 95 96 98 Oximetry O2 Sat by Pulse Oximetry [ Throughout] 07/04/22 07/04/22 07/04/22 05:45 05:47 05:52 Temperature Pulse Rate 81 86 86 Respiratory Rate Blood Pressure 100/57 O2 Sat by Pulse 96 97 Oximetry O2 Sat by Pulse Oximetry [ Throughout] 07/04/22 07/04/22 07/04/22 05:57 06:02 06:07 Temperature Pulse Rate 86 84 86 Respiratory Rate Blood Pressure O2 Sat by Pulse 95 96 98 Oximetry O2 Sat by Pulse Oximetry [ Throughout] 07/04/22 07/04/22 07/04/22 06:12 06:14 06:17 Temperature Pulse Rate 85 81 90 Respiratory Rate Blood Pressure 82/51 O2 Sat by Pulse 99 99 Oximetry O2 Sat by Pulse Oximetry [ Throughout] 07/04/22 07/04/22 06:22 06:27 Temperature Pulse Rate 88 83 Respiratory Rate Blood Pressure O2 Sat by Pulse 97 97 Oximetry O2 Sat by Pulse Oximetry [ Throughout] - Labs Labs: Abnormal Labs 07/02/22 07/02/22 07/02/22 00:38 07:39 11:20 MCH 27 L Magnesium 4.80 H 5.40 H 07/02/22 07/03/22 07/03/22 16:27 00:58 07:00 MCH Magnesium 5.90 H 4.80 H 6.20 H 07/03/22 12:17 MCH Magnesium 5.90 H Laboratory Results - last 24 hr 07/03/22 07/03/22 07/03/22 07:00 12:17 Unknown Magnesium 6.20 H 5.90 H Urine Opiates Screen Negative Urine Methadone Screen Negative Ur Barbiturates Screen Negative Ur Phencyclidine Scrn Negative Ur Amphetamines Screen Negative U Benzodiazepines Scrn Negative Urine Cocaine Screen Negative U Marijuana (THC) Screen Negative Drugs of Abuse Note Disclamer
--- NOTE | 2022-07-04 06:33 | Discharge Summary ---
Providers - Providers Date of Admission: 07/02/22 00:28 Date of discharge: 07/04/22 Attending physician: DIEGO SHELDON Primary care physician: DIEGO SHELDON Hospitalization Reason for admission: labor Discharge diagnosis: other ( labor) Hospital course: The patient was admitted through triage with a complaint of regular uterine contractions. She was noted to have cervical change to 2 cm. She was admitted for magnesium sulfate therapy and betamethasone. The patient remained clinically stable. Condition at discharge: Good Disposition: 01 HOME / SELF CARE / HOMELESS - Discharge Diagnoses (1) contractions Status: Acute Plan - Provider Discharge Summary Activity: no sex for 6 weeks, no heavy lifting 4 weeks, no strenuous exercise Diet: routine Instructions: routine Additional instructions: [] Smoking cessation referral if applicable(refer to patient education folder for contact #) [] Refer to [facility] Booklet Call your doctor immediately for: * Fever > 100.5 * Heavy vaginal bleeding ( >1 pad per hour) * Severe persistent headache * Shortness of breath * Reddened, hot, painful area to leg or breast * Schedule follow-up in 1 week * labor precautions given - Follow up plan Forms: [facility] Discharge Summary
[2022-07-04 07:40] VITALS: BP 97/55
== END 2022-07-04 08:23 | disposition home or self-care (01) | DRG 781 ==
LOC: TRG 20:41 → APU 20:42 → LD 07-02 00:28 → OBSVTOIN 07-02 00:28 → TRG 07-02 00:28
PROVIDERS: ADMIT Obstetrics & Gynecology; ATTEND Obstetrics & Gynecology
DX: O99.013 Anemia complicating pregnancy, third trimester (principal); O60.03 Preterm labor without delivery, third trimester; D57.3 Sickle-cell trait; A60.09 Herpesviral infection of other urogenital tract; Z20.822 Contact with and (suspected) exposure to COVID-19; O98.313 Other infections with a predominantly sexual mode of transmission complicating pregnancy, third trimester; A60.00 Herpesviral infection of urogenital system, unspecified; Z3A.34 34 weeks gestation of pregnancy
CPT/HCPCS: 36415; 59025; 80307; 81001; 83735; 84112; 85025; 86850; 86900; 86901; 96360; 96372; G0378; J0702; J3105; J3475; J7120; U0003

== ENCOUNTER 2022-07-18 19:41 | Inpatient (IN) | payer OTHER ==
[2022-07-18] MEDS ORDERED: LACTATED RINGERS 1,000 ML IV ONE (20:24)
[2022-07-18 20:43] LABS: Bacteria,Urine 1+ /HPF (Negative); RBC,Urine < 1.0 /HPF (0.0-6.0)
[2022-07-18 20:54] LABS: Color,Urine Yellow (Yellow)
[2022-07-18] MEDS ORDERED: BUTORPHANOL 2 MG/1 ML INJ IV PRN ×2 (21:08)
[2022-07-18] MEDS ORDERED: OXYTOCIN 10 UNIT/1 ML INJ IM PRN (21:08)
[2022-07-18] MEDS ORDERED: CARBOPROST TROMETHAMINE 250 MCG/1 ML INJ IM PRN (21:08)
[2022-07-18] MEDS ORDERED: METHYLERGONOVINE MALEATE 0.2 MG/ML VIAL IM PRN (21:08)
[2022-07-18] MEDS ORDERED: LIDOCAINE (2%) 20 MG/1 ML VIAL 20 ML MDV INFILTRATI ONE (21:08)
[2022-07-18] MEDS ORDERED: ePHEDrine SULFATE 50 MG/1 ML INJ IV PRN (21:08)
[2022-07-18] MEDS ORDERED: MINERAL OIL 30 ML ORAL LIQD PO PRN (21:08)
[2022-07-18] MEDS ORDERED: TERBUTALINE 1 MG/1 ML INJ SUB-Q PRN (21:08)
[2022-07-18] MEDS ORDERED: miSOPROStol 200 MCG TAB PR PRN (21:08)
[2022-07-18] MEDS ORDERED: LOPERAMIDE 2 MG CAP PO PRN (21:08)
[2022-07-18] MEDS ORDERED: ACETAMINOPHEN 325 MG TAB PO PRN (21:08)
[2022-07-18] MEDS ORDERED: LACTATED RINGERS 1,000 ML IV SCH (21:15)
[2022-07-18] MEDS ORDERED: fentaNYL 100 MCG/2 ML INJ IV PRN (21:19)
[2022-07-18 21:49] LABS: Hematocrit 35.6 % (30.3-42.9); Hemoglobin 11.8 gm/dl (10.1-14.3); Mean Corpuscular HGB Conc 33 % (30-34); Mean Corpuscular Volume 80 fl (79-97); Platelet Count 226 K/mm3 (140-440); Red Blood Count 4.46 M/mm3 (3.65-5.03)
[2022-07-18] MEDS ORDERED: OXYTOCIN DRIP 30 UNITS/500 ML BAG IV SCH (22:00)
[2022-07-19] MEDS ORDERED: KETOROLAC 30 MG/1 ML INJ IV ONE (00:55)
--- NOTE | 2022-07-19 01:01 | History and Physical Report ---
History of Present Illness Date of examination: 07/19/22 Chief complaint: Contractions History of present illness: 21-year-old -0-1-2 at 36 and 3 weeks who presents with regular uterine co ntractions. Patient denies leakage of fluid. The patient initiated her care in the first trimester. Her course has been complicated by contractions and labor. She has a history of sickle cell trait. GBS is negative Past History Past Medical History: other (Sickle cell trait) Past Surgical History: no surgical history Social history: single - Obstetrical History Expected Date of Delivery: 08/13/22 Actual Gestation: 36 Week(s) 3 Day(s) : 4 Para: 2 Hx # Term Pregnancies: 2 Number of Pregnancies: 0 Spontaneous Abortions: 1 Induced : 0 Number of Living Children: 2 Medications and Allergies Allergies Allergy/AdvReac Type Severity Reaction Status Date / Time No Known Allergies Allergy Verified 11/14/15 08:08 Home Medications Medication Instructions Recorded Confirmed Last Taken Type Pnv,Calcium 72/Iron/Folic Acid 1 each PO DAILY 08/10/16 05/30/20 Unknown History [Pnv Plus Multivit Tab] HYDROcodone/APAP 5-325 [[place] 2 each PO Q6H PRN #30 tablet 08/11/16 05/30/20 Unknown Rx 5-325 mg TAB] Ibuprofen [Motrin 600 MG tab] 600 mg PO Q6HR PRN #30 tablet 08/11/16 05/30/20 Unknown Rx Vit-Fe Fumar-FA [ 1 each PO QDAY #30 tablet 08/11/16 05/30/20 Unknown Rx Vitamin] Ibuprofen [Motrin 600 MG tab] 600 mg PO Q6H tablet 05/31/20 Unknown Rx Ibuprofen [Motrin] 600 mg PO Q6H PRN #60 tablet 05/31/20 Unknown Rx Active Meds: Active Medications Acetaminophen (Acetaminophen 325 Mg Tab) 650 mg PO Q4H PRN PRN Reason: Pain, Mild (1-3) Butorphanol Tartrate (Butorphanol 2 Mg/1 Ml Inj) 1 mg IV Q2H PRN PRN Reason: Pain, Moderate(4-6) LABOR PAIN Butorphanol Tartrate (Butorphanol 2 Mg/1 Ml Inj) 2 mg IV Q2H PRN PRN Reason: Pain , Severe (7-10) Carboprost Tromethamine (Carboprost Tromethamine 250 Mcg/1 Ml Inj) 250 mcg IM ONCE PRN PRN Reason: Uterine Bleeding Ephedrine Sulfate (Ephedrine Sulfate 50 Mg/1 Ml Inj) 10 mg IV Q2M PRN PRN Reason: Hypotension Fentanyl (Fentanyl 100 Mcg/2 Ml Inj) 100 mcg IV Q2H PRN PRN Reason: Pain,Severe (7-10) LABOR PAIN Lactated Ringer's (Lactated Ringers) 1,000 mls @ 125 mls/hr IV DIRECT ADALID Oxytocin/Sodium Chloride (Pitocin/Ns 30 Unit/500ml) 30 units in 500 mls @ 40 mls/hr IV TITR ADALID; Protocol Ketorolac Tromethamine (Ketorolac 30 Mg/1 Ml Inj) 30 mg IV ONCE ONE Stop: 07/19/22 00:56 Loperamide HCl (Loperamide 2 Mg Cap) 2 mg PO ONCE PRN PRN Reason: give with Hemabate Methylergonovine Maleate (Methylergonovine Maleate 0.2 Mg/Ml Vial) 0.2 mg IM ONCE PRN PRN Reason: Uterine Bleeding Mineral Oil (Mineral Oil 30 Ml Oral Liqd) 30 ml PO QHS PRN PRN Reason: Constipation Misoprostol (Misoprostol 200 Mcg Tab) 800 mcg NM ONCE PRN PRN Reason: Uterine Bleeding Oxytocin (Oxytocin 10 Unit/1 Ml Inj) 10 unit IM ONCE PRN PRN Reason: Uterine Bleeding Terbutaline Sulfate (Terbutaline 1 Mg/1 Ml Inj) 0.25 mg SUB-Q ONCE PRN PRN Reason: Hyperstimulation/Hypertonicity Review of Systems All systems: negative - Vital Signs Vital signs: Vital Signs Pulse Ox 84 07/04/22 07:53 Temp Pulse Resp BP Pulse Ox 98.7 F 98 H 103/63 100 07/18/22 21:30 07/19/22 00:52 07/18/22 20:03 07/19/22 00:52 - Physical Exam Breasts: Positive: deferred Cardiovascular: Regular rate Lungs: Positive: Clear to auscultation Abdomen: Positive: normal appearance Results Result Diagrams: 07/18/22 21:24 Abnormal lab results 07/18/22 Range/Units 21:24 MCH 27 L (28-32) pg All other labs normal. Assessment and Plan - Patient Problems (1) labor Current Visit: Yes Status: Acute Plan to address problem: Admit to labor and delivery Expectant management
[2022-07-19] MEDS ORDERED: PROMETHAZINE 25 MG RECT SUPP PR PRN (01:02)
[2022-07-19] MEDS ORDERED: WITCH HAZEL/ GLYCERIN PAD TP PRN (01:02)
[2022-07-19] MEDS ORDERED: LANOLIN/ZINC/DIMETHICONE (LANSINOH) 7 GM TP PRN (01:02)
[2022-07-19] MEDS ORDERED: diphenhydrAMINE 25 MG CAP PO PRN (01:02)
[2022-07-19] MEDS ORDERED: PROMETHAZINE 25 MG TAB PO PRN (01:02)
[2022-07-19] MEDS ORDERED: MAGNESIUM HYDROXIDE (MOM) ORAL LIQD UDC PO PRN (01:02)
[2022-07-19] MEDS ORDERED: ONDANSETRON 4 MG/2 ML INJ IV PRN (01:02)
--- NOTE | 2022-07-19 01:02 | Procedure Note ---
OB Delivery Note - Delivery Date of Delivery: 07/19/22 Surgeon: DIEGO SHELDON Estimated blood loss: 100cc - Vaginal Delivery presentation: vertex Delivery position: OA Intrapartum events: labor-<37 weeks Delivery induction: AROM Delivery monitor: external FHT, external uterine Route of delivery: Delivery placenta: spontaneous Delivery cord: nuchal cord, 3 umbilical vessels Episiotomy: none Delivery laceration: none Anesthesia: none - Infant A at 1 minute: 8 at 5 minutes: 9 Gender: Male (7 pounds 1 ounce)
[2022-07-19] MEDS ORDERED: ACETAMINOPHEN 325 MG TAB PO PRN (01:03)
[2022-07-19] MEDS ORDERED: HYDROcodone/ACETAMINOPHEN 5-325 MG TAB PO PRN (01:03)
[2022-07-19] MEDS: IBUPROFEN 800 MG TAB PO SCH ×2 (07:52→22:30)
[2022-07-19 16:15] LABS: Hemoglobin 11.6 gm/dl (10.1-14.3)
[2022-07-20] MEDS: IBUPROFEN 800 MG TAB PO SCH (06:25)
--- NOTE | 2022-07-20 08:05 | Discharge Summary ---
Providers - Providers Date of Admission: 07/18/22 21:09 Date of discharge: 07/20/22 Attending physician: ASHLEY BUSH Primary care physician: ASHLEY BUSH Hospitalization Reason for admission: active labor Delivery: Discharge diagnosis: IUP at term delivered baby: male Hospital course: Patient admitted in labor. She had a successful vaginal delivery. course was uneventful. Condition at discharge: Good Disposition: 01 HOME / SELF CARE / HOMELESS - Discharge Diagnoses (1) labor Status: Acute Plan - Discharge Medications Prescriptions: Ibuprofen [Motrin] 800 mg PO Q8HR PRN #30 tablet PRN Reason: Pain , Severe (7-10) HYDROcodone/APAP 5-325 [[place] 5/325] 1 each PO Q6HR PRN #15 tablet PRN Reason: Pain - Provider Discharge Summary Activity: no sex for 6 weeks, no heavy lifting 4 weeks, no strenuous exercise Diet: routine Instructions: routine Additional instructions: [] Smoking cessation referral if applicable(refer to patient education folder for contact #) [] Refer to [facility] Booklet Call your doctor immediately for: * Fever > 100.5 * Heavy vaginal bleeding ( >1 pad per hour) * Severe persistent headache * Shortness of breath * Reddened, hot, painful area to leg or breast * Schedule visit in 4 weeks - Follow up plan
--- NOTE | 2022-07-20 08:05 | Progress Note ---
Assessment and Plan - Patient Problems (1) labor Current Visit: Yes Status: Acute Plan to address problem: Routine care Discharge home Subjective - Subjective Date of service: 07/20/22 Interval history: Patient is currently without complaints. She is only experiencing minor cramping. Her lochia is minimal. Patient reports: appetite normal, voiding normally, pain well controlled [place]: doing well Objective - Vital Signs Latest vital signs: Vital Signs Temp Pulse Resp BP Pulse Ox Pulse Ox 07/20/22 00:15 98.3 F 89 20 98/63 100 07/19/22 21:40 100 07/19/22 17:10 98.6 F 93 H 20 103/62 100 07/19/22 11:30 98.2 F 87 20 114/80 100 07/19/22 09:43 97.4 F L 80 20 102/59 99 07/19/22 08:30 99 Intake and Output 07/19/22 07/20/22 07/20/22 22:59 06:59 14:59 Intake Total 320 240 Output Total 1250 Balance -930 240 Intake: Oral 320 240 Output: Urine 1250 Void 1250 Other: Total, Intake Amount 320 240 Total, Output Amount 350 # Voids Void 1 1
[2022-07-20 17:38] VITALS: BP 101/67
== END 2022-07-20 16:00 | disposition home or self-care (01) | DRG 775 ==
LOC: TRG 19:41 → APU 19:43 → TRG 21:08 → LD 21:09 → OB 07-19 03:20
PROVIDERS: ADMIT Obstetrics & Gynecology; ATTEND Obstetrics & Gynecology
PROC: 10E0XZZ Delivery of Products of Conception, External Approach (ICD-10-PCS; principal; 2022-07-19)
PROC: 10907ZC Drainage of Amniotic Fluid, Therapeutic from Products of Conception, Via Natural or Artificial Opening (ICD-10-PCS; 2022-07-19)
DX: O60.14X0 Preterm labor third trimester with preterm delivery third trimester, not applicable or unspecified (principal); Z37.0 Single live birth; Z3A.36 36 weeks gestation of pregnancy; Z20.822 Contact with and (suspected) exposure to COVID-19; O69.81X0 Labor and delivery complicated by cord around neck, without compression, not applicable or unspecified
CPT/HCPCS: 36415; 81001; 85014; 85018; 85027; 86592; 86850; 86900; 86901; G0378; J1885; J2590; U0003